=== PATIENT | female | born 1990 | race Caucasian/White ===

== ENCOUNTER 2017-03-29 00:44 | Emergency (ER) | payer OTHER ==
[~2017-03-29] VITALS: Ht 165.1 cm; Wt 77.3 kg
[2017-03-29 00:52] VITALS: BP 117/75; PULSE 91; RESP 18; O2SAT 98
--- NOTE | 2017-03-29 01:31 | ED.REPORT ---
HPI-Rash / Abscess Date of Service Mar 29, 2017 ED Provider: Dani Morris DO Patient is a 27 year old female with a history of IV heroin use who presents to the ED due to an abscess on her right forearm onset a week ago. Associated symptoms include surrounding erythema and swelling. She denies fever. The patient reports that she drained a small amount of yellow pus from it earlier today. She admits to daily heroin use for the past two years. Nursing Notes Stated Complaint: SKIN RASH/ ABSCESS Chief Complaint: Skin Rash/Abscess Nursing Notes Reviewed: Yes Allergies: Coded Allergies: No Known Allergies (Verified Allergy, Unknown, 03/29/17) No Active Prescriptions or Reported Meds General Time Seen by MD: 01:30 Chief Complaint Abscess Hx Obtained From: Patient Arrived By: Walk-in Onset Occurred: 1 week ago Symptom Duration: Since onset Location: : Forearm Quality: Painful Severity: Current: Moderate Recent Healthcare: No recent hospitalization, Recent doctor visit Past Medical History Past Medical History Hx IV heroin use (sober 2 months since 08/02/15), quit on own fortitude and has not taken suboxone. Healthy Past Surgical History None Smoking History Never Smoker Social History Alcohol Use: Denies alcohol use Drug Use: IV drugs, Meth Other Social History: Good social support Ambulatory Status Independent Review of Systems Constitutional: Denies: Chills, Fever Respiratory: Denies: Non-productive cough, Shortness of breath Musculoskeletal: Reports: Extremity pain, Extremity swelling Skin: Denies Itching, Denies Rash Complete sys rev & neg: except as marked. Female: Denies: Physical Exam Initial Vital Signs Vital Signs (First) Date Time Temp Pulse Resp B/P Pulse Ox O2 Delivery O2 Flow Rate FiO2 03/29/17 00:52 36.8 91 18 117/75 98 Room Air Initial VS: Reviewed General/Constitutional: Awake, Alert, No acute distress Head / Eyes: Atraumatic, Normocephalic, PERRL, EOMI Respiratory / Chest: Atraumatic, Breath sounds NL, Breath sounds = bilat, No respiratory distress Cardiovascular: Heart rate NL, Regular rhythm, Heart sounds NL UPPER EXTREMITIES: 5cm diameter abscess on right forearm with surrounding erythema Neurologic: Oriented X3, Speech NL, No motor deficits, No sensory deficits Psychiatric: Affect NL, Mood NL Procedures Incision & Drainage Abscess Time: 02:07 Procedure Performed by: ED physician Consent / Setup / Site Prep: Consent from patient, Time-out performed, Hand hygiene observed Location of Abscess: right forearm Skin Preparation Agent: Hibiclens - Chlorhexidine Local Anesthesia: Lidocaine w epi 1% Incised Abscess with Scalpel: #10 Pus Drained: Medium, Bloody Irrigation: Yes, Copious Post-Procedure / Complications: Packing placed, Dressing applied, No complications, Condition improved, Tolerated procedure well, Patient stable Re-Eval/Medical Decision Re-Evaluation/Progress #1: Time of Eval: 02:07 Re-Evaluation/Progress Note: Discussed plan for incision and drainage. Patient understands and agrees to plan. All questions were addressed. Re-Evaluation/Progress #2: Time of Eval: 02:24 Re-Evaluation/Progress Note: Discussed plan for dischage and referral to [facility]. Patient understands and agrees to plan. All questions were addressed. Counseled Regarding: Diagnosis, Need for follow-up, When/why to return to ED Discharge & Departure Impression: Primary Impression: Abscess Additional Impression: Cellulitis Site of cellulitis: extremity Site of cellulitis of extremity: upper extremity Laterality: right Qualified Code: L03.113 - Cellulitis of right upper limb Disposition: Home Discharge Condition All VS Reviewed: Yes Condition: Stable Patient Instructions: Abscess (ED), Cellulitis (DC) Additional Instructions: We drained the abscess on your arm. Take Bactrim 2x a day for 5 days. Take Keflex 3x a day for 5 days. Come back to the ED tomorrow to have the packing removed. Follow up with your primary care physician next week. There is also a referral for [facility]. Call for a follow up appointment about getting treatment to help quit heroin. Return to the emergency department if you develop any new or concerning symptoms including fever, spreading redness, swelling or increasing pain. Referrals: Elva Llanes MD (PCP) ALMITA Mims Attestation Portions of this note were transcribed by Elsie Nova. I, Dr. Morris personally performed the history, physical exam and medical decision-making; I reviewed and confirmed the accuracy of the information in the transcribed note. Signed by: Prasanna Reaves, 03/29/17 and 0230 copies to: Elva Llanes MD ; [facility] Dani Morris DO Mar 29, 2017 01:31 Marlee Nova Mar 29, 2017 01:41
[2017-03-29] MEDS ORDERED: Lidocaine-Prilo 2.5-2.5% 30 Gm Cream ONE (01:37)
[2017-03-29] MEDS ORDERED: Lidocaine 1%-Epi 1:100,000 50 mL Inj NERVEBLOCK ONE (01:40)
[2017-03-29] MEDS ORDERED: Lidocaine 1%/Epi 1:100,000 30 mL MDV INFILTRATE ONE (01:45)
[2017-03-29] MEDS ORDERED: Trimethoprim-Sulfa 160 mg-800 mg Tablet PO ONE (02:30)
== END 2017-03-29 03:17 | disposition home or self-care (01) ==
LOC: SED 00:44
DX: L02.413 Cutaneous abscess of right upper limb (principal); L03.113 Cellulitis of right upper limb

== ENCOUNTER 2017-03-29 22:29 | Emergency (ER) | payer OTHER ==
[~2017-03-29] VITALS: Ht 165.1 cm; Wt 77.3 kg
[2017-03-29 22:39] VITALS: BP 114/73; PULSE 101; RESP 18; O2SAT 100
[2017-03-29] MEDS ORDERED: Trimethoprim-Sulfa 160 mg-800 mg Tablet PO ONE (22:55)
--- NOTE | 2017-03-29 22:55 | ED.REPORT ---
HPI-Recheck W/B/S Date of Service Mar 29, 2017 ED Provider: Dani Morris DO Patient is a 27 year old female who was seen here at the ED yesterday for an abscess on her right forearm. The abscess was drained and packed. She was put on a course on antibiotics and informed to return to the ED for a wound check. Patient denies fever. Nursing Notes Stated Complaint: WOUND CHECK Chief Complaint: Wound Recheck/Suture Removal Nursing Notes Reviewed: Yes Allergies: Coded Allergies: No Known Allergies (Verified Allergy, Unknown, 03/29/17) No Active Prescriptions or Reported Meds General Time Seen by Provider: 22:55 Chief Complaint Wound check Wound / Injury Type: Abscess Prior Tx of Wound / Injury: Incision & drainage, Wound packed Hx Obtained From: Patient Arrived By: Walk-in Severity: Current: No pain currently Recent Healthcare: No recent hospitalization, Recent doctor visit Similar Sx Previous: Yes Past Medical History Past Surgical History None Smoking History Never Smoker Social History Alcohol Use: Denies alcohol use Drug Use: IV drugs, Meth Other Social History: Good social support Ambulatory Status Independent Review of Systems Constitutional: Denies: Chills, Fever Skin: Denies Itching, Denies Rash, Denies Swelling Complete sys rev & neg: except as marked. Respiratory: Denies: Non-productive cough, Shortness of breath Musculoskeletal: Denies: Extremity pain, Extremity swelling Physical Exam Initial Vital Signs Vital Signs (First) Date Time Temp Pulse Resp B/P Pulse Ox O2 Delivery O2 Flow Rate FiO2 03/29/17 22:39 36.9 101 18 114/73 100 Room Air Initial VS: Reviewed Skin: No rash (the packing was removed. The wound looks great. The cellulitis is nearly resolved.), Warm, Dry General/Constitutional: Awake, Alert, No acute distress Head / Eyes: Atraumatic, Normocephalic, PERRL, EOMI Respiratory / Chest: Atraumatic, Breath sounds NL, Breath sounds = bilat, No respiratory distress Cardiovascular: Heart rate NL, Regular rhythm, Heart sounds NL UPPER EXTREMITIES: packing removed open and draining abscess on the right forearm improving cellulitis Neurologic: Oriented X3, Speech NL, No motor deficits, No sensory deficits Psychiatric: Affect NL, Mood NL Re-Eval/Medical Decision Med Decision/Clinical Course Packing removed from right forearm. Abscess was open and draining. The cellulitis was improving. No signs of further infection Re-Evaluation/Progress : Time of Eval: 23:01 Re-Evaluation/Progress Note: Removed packing and checked wound. Discussed plan for discharge. Patient understands and agrees. All questions were addressed. Counseled Regarding: Diagnosis, Need for follow-up, When/why to return to ED Discharge & Departure Impression: Primary Impression: Wound check, abscess Disposition: Home Discharge Condition All VS Reviewed: Yes Condition: Stable Patient Instructions: Abscess (ED) Additional Instructions: The wound looks good and should heal nicely. The cellulitis is also improving Finish the course of antibiotics you were prescribed yesterday and follow up with your primary care physician in 5 days. Return to the emergency department if you develop any new or concerning symptoms including signs of infection including spreading redness, swelling or increasing pain. Referrals: [facility] Prasanna Attestation Portions of this note were transcribed by Elsie Nova. I, Dr. Morris personally performed the history, physical exam and medical decision-making; I reviewed and confirmed the accuracy of the information in the transcribed note. Signed by: Prasanna Reaves, 03/29/17 and 2301 copies to: [facility] Dani Morris DO Mar 29, 2017 22:55 Marlee Nova Mar 29, 2017 22:57 Dani Morris DO Mar 29, 2017 22:55 Marlee Nova Mar 29, 2017 22:57
== END 2017-03-29 23:44 | disposition home or self-care (01) ==
LOC: SED 22:29
DX: L02.413 Cutaneous abscess of right upper limb (principal)